=== PATIENT | female | born 1980 | race Caucasian/White ===

== ENCOUNTER 2022-08-29 02:12 | Emergency (ER) | payer OTHER ==
[2022-08-29 02:21] VITALS: TEMP 98.2
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
[2022-08-29 03:53] VITALS: BP 151/100; PULSE 103; RESP 18
== END 2022-08-29 03:53 | disposition home or self-care (01) ==
LOC: EC 02:12
DX: T74.21XA Adult sexual abuse, confirmed, initial encounter (principal); F17.200 Nicotine dependence, unspecified, uncomplicated
CPT/HCPCS: 99284